=== PATIENT | male | born 1965 | race Hispanic/Latino ===

== ENCOUNTER 2023-12-15 08:29 | Observation (INO) | payer OTHER ==
[~2023-12-15] VITALS: Ht 172.7 cm; Wt 95.5 kg
[~2023-12-15 08:29] MED LIST: CYCLOBENZAPRINE10 MG PO
[2023-12-15 08:32] VITALS: TEMP 97.9
[2023-12-15] MEDS ORDERED: SODIUM CHLORIDE FLUSH 10 ML SYR IV PRN (08:45)
[2023-12-15 08:53] LABS: BASOPHILS # (AUTO) 0.1 (0.0-0.1); BASOPHILS % 0.6 % (0.0-1.0); EOSINOPHILS # (AUTO) 0.4 (0.0-0.4); EOSINOPHILS % 4.6 % (0.0-6.0); HEMATOCRIT 40.1 % (38.2-49.6); HEMOGLOBIN 13.5 g/dL (14.0-18.0); LYMPHOCYTES # (AUTO) 2.1 (1.0-3.2); LYMPHOCYTES % 25.8 % (18.0-39.1); MEAN CORPUSCULAR HEMOGLOBIN 30.4 pg (28-32); MEAN CORPUSCULAR HGB CONC 33.7 g/dL (31-35); MEAN CORPUSCULAR VOLUME 90.3 fL (81-99); MONOCYTES # (AUTO) 0.4 (0.2-0.8); NEUTROPHILS # (AUTO) 5.1 (2.1-6.9); NEUTROPHILS % 63.7 % (38.7-80.0); PLATELET COUNT 242 x10e3/uL (140-360); RED BLOOD COUNT 4.44 x10e6/uL (4.3-5.7); RED CELL DISTRIBUTION WIDTH 12.8 % (11.7-14.4); WHITE BLOOD COUNT 7.99 x10e3/uL (4.8-10.8)
[2023-12-15 09:15] LABS: ALANINE AMINOTRANSFERASE 29 IU/L (0-55); ALBUMIN 4.1 g/dL (3.5-5.0); ALBUMIN/GLOBULIN RATIO 1.2 (0.8-2.0); ALKALINE PHOSPHATASE 92 IU/L (40-150); ANION GAP 14.5 mmol/L (8-16); BILIRUBIN,TOTAL 0.3 mg/dL (0.2-1.2); BLOOD UREA NITROGEN 16 mg/dL (7-26); BUN/CREATININE RATIO 18 (6-25); CALCIUM 9.8 mg/dL (8.4-10.2); CARBON DIOXIDE 23 mmol/L (22-29); CHLORIDE 102 mmol/L (98-107); CREATININE, SERUM 0.88 mg/dL (0.72-1.25); EST GLOMERULAR FILTRATION RATE 100 ML/MIN (>=60); GLUCOSE 219 mg/dL (74-118); POTASSIUM 3.5 mmol/L (3.5-5.1); SODIUM 136 mmol/L (136-145); TOTAL PROTEIN 7.4 g/dL (6.5-8.1)
[2023-12-15 09:21] LABS: TROPONIN I < 0.001 ng/mL (0-0.300)
[2023-12-15] MEDS ORDERED: SODIUM CHLORIDE FLUSH 10 ML SYR INJ PRN (11:00)
[2023-12-15] MEDS ORDERED: ONDANSETRON HCL INJ 2MG/ML 2ML 2 MG/ML VIAL IV PRN (11:00)
[2023-12-15] MEDS ORDERED: SODIUM CHLORIDE 0.9% 1000ML 1,000 ML ONE (12:44)
[2023-12-15] MEDS: DONNATAL/LIDOCAINE/MAALOX 30 ML SUSP PO ONE (13:00)
[2023-12-15] MEDS: ASPIRIN 81 MG CHEW TAB PO ONE ×2 (13:11→14:24)
[2023-12-15 14:14] VITALS: PULSE 66; RESP 18
[2023-12-15 14:37] LABS: CREATINE KINASE 207 IU/L (30-200)
[2023-12-15 14:45] LABS: TROPONIN I < 0.001 ng/mL (0-0.300)
[2023-12-15 15:30] VITALS: BP 120/76; PULSE 66; RESP 18; TEMP 97.7; O2SAT 100
[2023-12-15] MEDS ORDERED: POLYETHYLENE GLYCOL 3350 17 GM PACK PO PRN (15:30)
[2023-12-15] MEDS ORDERED: HYDRALAZINE HCL 20 MG/ML VIAL IV PRN (15:30)
[2023-12-15] MEDS ORDERED: GUAIFENESIN/DEXTROMETHORPHAN LIQD 5 ML UDC PO PRN (15:30)
[2023-12-15] MEDS ORDERED: ACETAMINOPHEN 325 MG TAB PO PRN (15:30)
[2023-12-15] MEDS ORDERED: MAGNESIUM/ALUMINUM/SIMETHICONE 30 ML UDC PO PRN (15:30)
[2023-12-15 16:58] VITALS: BP 120/76; PULSE 66; RESP 20; TEMP 97.7; O2SAT 100
[2023-12-15 17:06] VITALS: BP 120/76; PULSE 66; RESP 20; TEMP 97.7; O2SAT 100
[2023-12-15] MEDS ORDERED: DEXTROSE 50% SYRINGE 50 ML IV PRN (17:15)
[2023-12-15] MEDS: INSULIN REGULAR, HUMAN 100 UNIT/1 ML SQ SCH (17:30)
[2023-12-15] MEDS ORDERED: GLIPIZIDE5 MG PO (18:57)
[2023-12-15] MEDS ORDERED: CIALIS5 MG (18:57)
[2023-12-15] MEDS ORDERED: PRAVASTATIN SOD40 MG (18:57)
[2023-12-15] MEDS ORDERED: RYBELSUS14 MG (18:57)
[2023-12-15] MEDS ORDERED: LISINOPRIL10 MG PO (18:57)
[2023-12-15] MEDS ORDERED: METFORMIN HCL850 MG PO (18:57)
[2023-12-15] MEDS ORDERED: TRIAMTERENE-HCTZ1 EA PO (18:57)
[2023-12-15] MEDS ORDERED: BACLOFEN10 MG PO (19:08)
[2023-12-15 20:00] VITALS: BP_SYST 144; BP_SYST 181; BP_DIAS 72; BP_DIAS 86; PULSE 70; RESP 20; TEMP 97.8; O2SAT 97
[2023-12-15] MEDS ORDERED: MELATONIN 3 MG TAB PO PRN (21:00)
[2023-12-15] MEDS: DOCUSATE SODIUM 100 MG CAP PO SCH (21:58)
[2023-12-16 05:28] LABS: BASOPHILS % 0.7 % (0.0-1.0); EOSINOPHILS # (AUTO) 0.4 (0.0-0.4); HEMATOCRIT 35.9 % (38.2-49.6); HEMOGLOBIN 11.8 g/dL (14.0-18.0); LYMPHOCYTES # (AUTO) 2.3 (1.0-3.2); LYMPHOCYTES % 38.3 % (18.0-39.1); MEAN CORPUSCULAR HEMOGLOBIN 30.1 pg (28-32); MEAN CORPUSCULAR HGB CONC 32.9 g/dL (31-35); MEAN CORPUSCULAR VOLUME 91.6 fL (81-99); MONOCYTES # (AUTO) 0.5 (0.2-0.8); MONOCYTES % 7.7 % (4.4-11.3); NEUTROPHILS # (AUTO) 2.8 (2.1-6.9); NEUTROPHILS % 47.1 % (38.7-80.0); PLATELET COUNT 207 x10e3/uL (140-360); RED BLOOD COUNT 3.92 x10e6/uL (4.3-5.7); RED CELL DISTRIBUTION WIDTH 12.8 % (11.7-14.4); WHITE BLOOD COUNT 5.88 x10e3/uL (4.8-10.8)
[2023-12-16 06:10] LABS: ALBUMIN 3.4 g/dL (3.5-5.0); ALBUMIN/GLOBULIN RATIO 1.3 (0.8-2.0); ANION GAP 10.4 mmol/L (8-16); BILIRUBIN,TOTAL 0.2 mg/dL (0.2-1.2); CALCIUM 8.7 mg/dL (8.4-10.2); CREATININE, SERUM 0.81 mg/dL (0.72-1.25); TOTAL PROTEIN 6.1 g/dL (6.5-8.1)
[2023-12-16 06:11] LABS: POTASSIUM 3.4 mmol/L (3.5-5.1)
[2023-12-16 06:32] LABS: CREATINE KINASE 162 IU/L (30-200)
[2023-12-16 06:48] LABS: TROPONIN I < 0.001 ng/mL (0-0.300)
[2023-12-16] MEDS: MULTIVITAMINS/MINERALS TAB PO SCH (08:17)
[2023-12-16] MEDS: ASPIRIN 81 MG ENTERIC COATED PO SCH (08:18)
[2023-12-16 08:31] VITALS: BP 148/74; PULSE 65; RESP 18; TEMP 98.4; O2SAT 100
[2023-12-16 08:45] VITALS: BP 148/74; PULSE 65; RESP 18; TEMP 98.4; O2SAT 100
[2023-12-16] MEDS ORDERED: SIMETHICONE80 MG PO (11:49)
[2023-12-16] MEDS ORDERED: PROTONIX40 MG PO (11:49)
[2023-12-16] MEDS ORDERED: ASPIRIN EC81 MG PO (11:49)
[2023-12-16 11:54] VITALS: BP 142/62; PULSE 66; RESP 18; TEMP 98.4; O2SAT 100
== END 2023-12-16 13:15 | disposition home or self-care (01) ==
LOC: ER 08:51 → ERHOLD 10:46 → MED/SURG2 15:01
PROVIDERS: ADMIT Internal Medicine Critical Care Medicine; ATTEND Internal Medicine Critical Care Medicine
DX: R07.89 Other chest pain (principal); I10 Essential (primary) hypertension; K21.9 Gastro-esophageal reflux disease without esophagitis; E78.5 Hyperlipidemia, unspecified; E11.9 Type 2 diabetes mellitus without complications; Z79.84 Long term (current) use of oral hypoglycemic drugs; E66.9 Obesity, unspecified; Z68.32 Body mass index [BMI] 32.0-32.9, adult; M79.2 Neuralgia and neuritis, unspecified; Z79.82 Long term (current) use of aspirin; Z79.899 Other long term (current) drug therapy
CPT/HCPCS: 36415 ×2; 71046; 80053 ×2; 82550 ×2; 82948 ×2; 83880; 84484 ×2; 85025 ×2; 93005 ×2; 93306; 94760; G0378 ×2; J7030